=== PATIENT | female | born 1970 | race Caucasian/White ===

== ENCOUNTER 2019-12-21 09:01 | Outpatient (CLI) | payer MEDICARE, OTHER ==
--- NOTE | 2019-12-22 14:42 | RAD ---
EXAM: XR Ba Swallow W/Speech Therap PROVIDED CLINICAL HISTORY: Dysphagia, oropharyngeal phase. Gastroesophageal reflux disease without esophagitis. COMPARISON: None FINDINGS: This examination was performed by speech pathology, and a video is available for evaluation. Patient was administered varying consistencies of barium throughout the exam. There is premature spill of contrast into the vallecula prior to initiation of the swallowing mechanism. No aspiration or penetra tion was demonstrated during the exam. A 12.5 mm barium tablet was administered which traverses the most proximal visualized esophagus freely and without difficulty. Fluoroscopy: Time-13.7 seconds Dose-0.45 mGy meter squared IMPRESSION: No evidence of aspiration or penetration.
== END 2019-12-21 09:02 | disposition home or self-care (01) ==
PROVIDERS: ATTEND Physician Assistant Medical
DX: R13.12 Dysphagia, oropharyngeal phase (principal); K21.9 Gastro-esophageal reflux disease without esophagitis
CPT/HCPCS: 74230

== ENCOUNTER 2019-12-25 12:24 | Outpatient (CLI) | payer MEDICARE, MEDICAID ==
[2019-12-25 15:34] LABS: #Lymphocytes 1.7 thou/uL (1.20-3.40); #Monocytes 0.5 thou/uL (0.11-0.59); #Neutrophils 4.3 thou/uL (1.40-6.50); %Basophils 0.7 % (0.0-1.0); %Eosinophils 0.7 % (0.0-10.0); %Lymphocytes 25.6 % (21.0-51.0); %Monocytes 8.1 % (0.0-10.0); %Neutrophils 64.8 % (42.0-75.0); Hemoglobin 13.2 g/dL (12.0-16.0); Mean Corpuscular HGB CONC 33.8 g/dL (32.0-36.0); Mean Corpuscular Hemoglobin 31.7 pg (27.0-31.0); Mean Corpuscular Volume 93.7 fL (78.0-98.0); Mean Platelet Volume 8.3 fL (7.4-10.4); Platelet Count 290 thou/uL (130-400); Red Blood Cell (RBC) Count 4.15 mill/uL (4.20-5.40); White Blood Cell (WBC) Count 6.6 thou/uL (4.8-10.8)
[2019-12-25 15:52] LABS: Anion Gap 13 mmol/L (10-20); BUN (Urea Nitrogen) 13 mg/dL (9.8-20.1); Calc. Creatinine Clearance 0 mL/min (70-130); Calcium 9.4 mg/dL (7.8-10.44); Carbon Dioxide 29 mmol/L (22-29); Chloride 104 mmol/L (98-107); Estimated GFR-MDRD 87; Glucose 73 mg/dL (70-105); Potassium 4.5 mmol/L (3.5-5.1); Sodium 141 mmol/L (136-145)
--- NOTE | 2019-12-25 16:58 | EKG ---
Test Reason : Blood Pressure : / mmHG Vent. Rate : 056 BPM Atrial Rate : 056 BPM P-R Int : 184 ms QRS Dur : 080 ms QT Int : 420 ms P-R-T Axes : 074 082 054 degrees QTc Int : 405 ms Sinus bradycardia Otherwise normal ECG No previous ECGs available Confirmed by MATTHEW LOPEZ ([id number]) on 12/25/2019 4:57:52 PM Referred By: [place] Confirmed By:MATTHEW LOPEZ
== END 2019-12-25 12:25 | disposition home or self-care (01) ==
LOC: LABBT 12:24
PROVIDERS: ATTEND Specialist
DX: Z01.818 Encounter for other preprocedural examination (principal); K41.90 Unilateral femoral hernia, without obstruction or gangrene, not specified as recurrent
CPT/HCPCS: 80048; 93005; 93010

== ENCOUNTER 2020-01-04 06:10 | Day surgery (SDC) | payer MEDICARE, MEDICAID ==
[2019-12-25 12:36] VITALS: BMI 26.4
[2020-01-04] MEDS ORDERED: Acetaminophen 500 MG TAB ONE (07:54)
[2020-01-04] MEDS ORDERED: Promethazine HCl 25 MG/ML VIAL ONE ×3 (07:54→11:23)
[2020-01-04] MEDS ORDERED: Levofloxacin 500 mg/D5W 100 ml Premix Bag ONE (07:54)
[2020-01-04] MEDS ORDERED: Ketorolac Tromethamine 30 MG/ML VIAL ONE (07:54)
[2020-01-04] MEDS ORDERED: Midazolam HCl 2 mg/2 ml Vial ONE (08:17)
[2020-01-04] MEDS ORDERED: Fentanyl 100 MCG/2 ML VIAL ONE ×2 (08:17→10:02)
[2020-01-04] MEDS ORDERED: Lidocaine 1% w/Epinephrine 1:100K 20 ML VIAL ONE (08:21)
[2020-01-04] MEDS ORDERED: Bupivacaine PF 0.5% 30 ML VIAL ONE (08:21)
[2020-01-04] MEDS ORDERED: Glycopyrrolate 0.2 MG/ML 5 ML SYRINGE ONE (11:13)
[2020-01-04] MEDS ORDERED: Ondansetron PF 4 MG/2 ML Vial ONE (11:13)
[2020-01-04] MEDS ORDERED: Lidocaine 1% PF 5 ML VIAL ONE (11:13)
[2020-01-04] MEDS ORDERED: Dexamethasone 20 MG/5 ML VIAL ONE (11:13)
[2020-01-04] MEDS ORDERED: PROPOFOL 200 MG/20 ML VIAL ONE (11:13)
[2020-01-04] MEDS ORDERED: Rocuronium Bromide 10 MG/ML (10ML VIAL) ONE (11:13)
--- NOTE | 2020-01-05 09:57 | OP ---
DATE OF PROCEDURE: 01/04/2020 PREOPERATIVE DIAGNOSIS: Right femoral hernia. POSTOPERATIVE DIAGNOSIS: Indirect right inguinal hernia. PROCEDURE PERFORMED: Open right inguinal hernia repair with mesh using a large mesh patch and plug. CONCRETE POLISHER: Zac Berry, Medical Student. ANESTHESIA: General with laryngeal mask airway. INDICATIONS: The patient is a 49-year-old white female. She had presented to my office with an obvious right inguinal hernia. At the time that I had seen her in the office, this seemed to be lower and I thought that it was likely a femoral hernia. I had marked the area of the hernia on the patient in the preop day surgery area. DESCRIPTION OF OPERATION: Informed consent was obtained, the patient was taken to the operating room, where general anesthesia was obtained with the patient in supine position. Right femoral area was trimmed of hair, prepped with ChloraPrep, and draped in sterile fashion. I marked the location of the hernia relative to the pubic tubercle and the inguinal ligament. After evaluating this, I felt it was more likely an inguinal hernia than a femoral hernia and decided to proceed with an inguinal hernia repair. Local anesthetic was infiltrated using 0.25% Marcaine with epinephrine. Oblique right inguinal incision was created. Dissection was carried through skin and subcutaneous tissue. There was obvious bulging through the external ring consistent with an inguinal hernia. Additional local anesthetic was infiltrated into the inguinal canal and the fascia was opened parallel to the fibers, so as to open the external ring. Careful dissection was carried out within the inguinal canal. I quickly identified the round ligament. This was ligated between clamps and 2-0 silk ties. The hernia sac was dissected back to its origin at the internal ring. The hernia was dissected at the internal ring to allow visualization of the preperitoneal fat. A large mesh plug was obtained and the apex was secured to the apex of the hernia sac and the complex was inverted in the preperitoneal space. The plug was secured to surrounding fascia with 3 interrupted sutures of 2-0 Vicryl. The mesh patch was then obtained and trimmed to appropriate size and placed within the floor of the inguinal canal. It was secured in place with several interrupted sutures of 2-0 Vicryl. The fascia was closed with a running suture of 3-0 Vicryl and additional local anesthetic was infiltrated. The remainder of the wound was closed in layers with 3-0 and 4-0 Monocryl. Dermabond was placed externally. There were no complications. The patient tolerated the procedure well and was taken to recovery room in stable condition. Job ID: [id number]
== END 2020-01-04 13:28 | disposition home or self-care (01) ==
LOC: SDC 06:10
PROVIDERS: ATTEND Specialist
PROC: 0YU50JZ Supplement Right Inguinal Region with Synthetic Substitute, Open Approach (ICD-10-PCS; principal; 2020-01-04)
DX: K40.90 Unilateral inguinal hernia, without obstruction or gangrene, not specified as recurrent (principal); I10 Essential (primary) hypertension; J45.909 Unspecified asthma, uncomplicated; E03.9 Hypothyroidism, unspecified; F41.9 Anxiety disorder, unspecified; F32.9 Major depressive disorder, single episode, unspecified; Z79.899 Other long term (current) drug therapy; Z88.0 Allergy status to penicillin
CPT/HCPCS: 49505; C1781; J1100; J1885; J1956; J2001; J2250; J2405; J2550; J2704; J3010; S0020